=== PATIENT | female | born 1995 | race Two or more races ===

== ENCOUNTER 2017-05-14 19:09 | Inpatient (IN) | payer OTHER ==
[~2017-05-14] VITALS: Ht 170.2 cm; Wt 54.7 kg
[2017-05-14] MEDS ORDERED: ZOLO50TA PO (19:19)
[2017-05-14] MEDS ORDERED: PREV15CA18 PO (19:19)
[2017-05-14] MEDS ORDERED: CHARCOAL ACTIVATED LIQUID 25 GM/120 ML BTL PO ONE (19:45)
[2017-05-14] MEDS ORDERED: OMEP20CA3 PO (19:45)
[2017-05-14 20:08] LABS: BASO % 0.5 % (0.0-1.0); EOS # 0.4 K/mm3 (0.0-0.50); EOS % 5.6 % (0.0-3.0); LARGE UNSTAINED CELL # 0.2 K/mm3 (0.0-0.4); LARGE UNSTAINED CELL % 2.3 % (0.0-4.0); LYMPH # 1.9 K/mm3 (1.5-6.5); LYMPH % 23.5 % (24.0-44.0); MEAN CORPUSCULAR HEMOGLOBIN 31.4 pg (27.0-33.0); MEAN CORPUSCULAR HGB CONC 34.4 g/dl (32.0-36.5); MEAN CORPUSCULAR VOLUME 91.2 fl (80.0-96.0); MONO # 0.4 K/mm3 (0.0-0.8); MONO % 6.1 % (0.0-5.0); NEUTROPHILS # 4.5 K/mm3 (1.8-7.7); NEUTROPHILS % 61.9 % (36.0-66.0); PLATELET COUNT, AUTOMATED 260 k/mm3 (150-450); RED CELL DISTRIBUTION WIDTH 12.9 % (11.5-14.5); WHITE BLOOD COUNT 7.2 K/mm3 (4.0-10.0)
[2017-05-14 20:21] LABS: CONTROL LINE HCG INT CTR LINE PRESENT
[2017-05-14 20:36] LABS: ALBUMIN 3.8 GM/DL (3.2-5.2); ALBUMIN/GLOBULIN RATIO 1.09 (1.00-1.93); ALKALINE PHOSPHATASE 52 U/L (45-117); ALT/SGPT 25 U/L (12-78); ANION GAP 10 MEQ/L (8-16); AST/SGOT 19 U/L (15-37); BILIRUBIN,DIRECT < 0.1 MG/DL (0.0-0.2); BILIRUBIN,TOTAL 0.3 MG/DL (0.2-1.0); BLOOD UREA NITROGEN 18 MG/DL (7-18); CALCIUM LEVEL 9.2 MG/DL (8.5-10.1); CARBON DIOXIDE LEVEL 24 MEQ/L (21-32); CHLORIDE LEVEL 107 MEQ/L (98-107); CREATININE FOR GFR 0.74 MG/DL (0.55-1.02); GLOMERULAR FILTRATION RATE > 60.0 (>60); GLUCOSE, FASTING 78 MG/DL (70-105); POTASSIUM SERUM 4.1 MEQ/L (3.5-5.1); SODIUM LEVEL 141 MEQ/L (136-145); TOTAL PROTEIN 7.3 GM/DL (6.4-8.2)
[2017-05-14 21:23] LABS: METHADONE URINE NEGATIVE (NEGATIVE)
--- NOTE | 2017-05-14 21:40 | ECGEPIP ---
Stationary ECG Study [facility] - ED Test Date: 2017-05-14 Pat Name: OLESYA MACIAS Department: Room: - Gender: F [employer] Truck Driver: melissa : 1995 Requested By: AMADA CARUSO Order Number: [id number] Reading MD: Jolly Hernandez Measurements Intervals [place] Rate: 80 P: 19 NE: 139 QRS: 60 QRSD: 86 T: 34 QT: 365 QTc: 421 Interpretive Statements SINUS RHYTHM NO PRIOR FOR COMPARISON Electronically Signed On 05-14-2017 21:40:07 EDT by Jolly eHrnandez
[2017-05-14] MEDS ORDERED: CIPROFLOXACIN 500 MG TAB PO ONE (22:00)
[2017-05-14] MEDS ORDERED: MAALOX 30 ML SUSP *UDC PO PRN (22:45)
[2017-05-14] MEDS ORDERED: ACETAMINOPHEN TAB 650MG DOSE (2X325MG) PO PRN (22:45)
[2017-05-14] MEDS ORDERED: MOM 30ML SUSPENSION UDC PO PRN (22:45)
[2017-05-15 05:43] VITALS: BP 112/79
[2017-05-15 06:41] VITALS: BP 112/79
[2017-05-15] MEDS: NICOTINE 21MG/24HR 1 EA TRANSDERMAL TD SCH (08:24)
[2017-05-15] MEDS ORDERED: hydrOXYzine 25 MG TAB PO PRN (08:45)
--- NOTE | 2017-05-15 08:46 | MHHPEPDOC ---
[facility] History & Physical History and Physical DATE OF ADMISSION: May 14, 2017 at 22:43 LEGAL STATUS AT ADMISSION: 9.39 CHIEF COMPLAINT: "I just freaked out". HISTORY OF THE PRESENT ILLNESS: Patient is a 22-year-old female, who was brought to the emergency room by her boyfriends family after ingesting 15-20 tablets of sertraline 50 mg in a suicide attempt. Pt had argued with boyfriend. She was arrested in February for manufacturing Methamphetamine and spent 2 months in half-way. She entered drug rehab treatment in April at [facility] but it is unclear if she completed treatment. She claims to have remained sober but her toxicology results show otherwise. She is positive for stimulants. She is also positive for benzo's but this is likely due to the high level of sertraline she consumed. The drug is known to give false positives. PSYCHIATRIC REVIEW OF SYSTEMS: Affective: tired, anxious. Anxiety: high Trauma: denied Psychosis: not illicted. Personally: cooperative PAST PSYCHIATRIC HISTORY: Prior Psychiatric Disorder: none, first psychiatric admission, 1 rehab for substance abuse. Outpatient Treatment: receives medication from PCP Suicidal/Self injurious: denies actions, has had thoughts of suicide in past. Psychotropic Medication History: sertraline 50 mg ALLERGIES: Please see below. FAMILY PSYCHIATRIC HISTORY: brother - crack cocaine, denies family h/o suicide, anxiety, depression, PTSD, ADHD. bipolar disorder and schizophrenia. SOCIAL HISTORY: Early Relations/development: no concerns Sibling order: 1 older brother she is the oldest of 4 sisters. not close to her siblings. Paternal relationships: dad is now , mom has contact, drinks on occasion. Education: HS, not motivated "I didn't apply myself". Occupational: unemployed. Legal: criminal charges pending that are drug related. Martial: unmarried Economic: unemployed Supports: BF and his family Abuse/trauma: denies SUBSTANCE ABUSE HISTORY: Heroin, denies alcohol, denies cannabis, 1/4 gram of amphetamine, vague about how many times a day she uses.. PAST MEDICAL/SURGICAL HISTORY: The patient is noted to have bruises around the right eye and left ear which she states is self-inflicted. She also has a small erythematous area at the left antecubital which she states is from a bug bite. Denies any fevers, chills , weakness, fatigue, ALLISON, CP, SOB, cough, palpitations, abdominal pain, N/V/D or changes in bowel or bladder habits. PMHx: Depression Anxiety Panic attack Substance use. states completed rehabilitation 04/13. Denies relapse. GERD Chronic hepatitis C related to history of IV drug use. Appointment with ID 06/28 Back PSHX: Denies EKG RESULTS: Stationary ECG Study [facility] - ED Test Date: 2017-05-14 Pat Name: OLESYA MACIAS Department: Room: - Gender: F Tax Services Specialist: melissa : 1995 Requested By: AMAAD CARUSO Order Number: [id number] Reading MD: Jolly Hernandez Measurements Intervals [place] Rate: 80 P: 19 OR: 139 QRS: 60 QRSD: 86 T: 34 QT: 365 QTc: 421 Interpretive Statements SINUS RHYTHM NO PRIOR FOR COMPARISON Electronically Signed On 05-14-2017 21:40:07 EDT by Jolly Hernandez DD: Jolly Hernandez MD 05/14/171932 DT: JIMENA 05/14/[id number] DS: ANTONINA [id number]/14/[id number]/172139 VITAL SIGNS: Temperature 97, pulse 78, respiratory rate 16, blood pressure 112/ 79, pulse oximetry 99% on room air. Abnormal labs: TSH 0.295 (L) MENTAL STATUS EXAMINATION: General appearance: Patient is a 22-year old female, who is thin, acne on forehead, poor eye contact, yawning-admits to not sleeping last night, cooperative) Speech: spontaneous but muffled, garbled at times. Thought processes: goal directed. Thought content: appropriate. Abstract reasoning and computation: poor. Description of associations: good. Description of abnormal or psychotic thoughts: denies SI at this time. Denies auditory or visual disturbances. No delusions or obsessions voiced. Judgment: fair. Insight: poor. Orientation: well oriented in all spheres. Recent and remote memory: intact for most details. Attention span and concentration: good. Fund of knowledge: full Mood: "anxious" Affect: moderate. DIAGNOSES: Stimulant abuse, dependency Generalized Anxiety Disorder Substance Induced Mood Disorder Depression related to substance abuse ASSESSMENT: Pt has a chronic drug problem. she used to use heroin but quit that. She was transferred from [facility] to [facility]hab and relapsed immediately upon release. Her toxicology is positive for amphetamines. She has a daughter who is 1.5 years old. The child's paternal grand mother has residential custody of her. Olesya was arrested for amphetamine manufacturing and is supposed to have outpatient treatment at [facility] and attend groups 2 days a week. She is also supposed to have MH/BH follow up through [facility]. She is requesting a block and case maker. She says she has her own apartment in [place], but does not drive. She spends her days going to appointments. She has not completed her community service and she has not been looking for work as she has difficulty organizing her time with her appointments. [facility] She follows with PCP for script. She took it for 2 months before her arrest with some benefit. It was recently increased from 25 mg to 50 mg and she was not experiencing any mood improvement with the increase. She exhibits lots of shaking and complains of anxiety ( likely substance induced). She denies worry. She was over a month clean at her longest period of clean time which was some time ago. She says her anxiety feels like "something is about to go wrong". Pt states her recent relapse was being in the wrong place at the wrong time and being offered the amphetamine. Pt reports good concentration, no problems with appetite, denies hearing voices , seeing visions, she has been suicidal before but never took any actions to harm herself. This time she started to throw herself around the room and feels this is how she got the bruise under her eye. She states she had been thinking of overdosing for several days before it happened but she did not talk to anyone about how she felt. She could not control her impulse to overdose after the argument with her BF. She scores depression as 4/10 with 10 being the worse. Pt states she used to enjoy coloring but now she finds it hard to stay focused and do this. She reports changes in her energy level, up one day and down the next. Her mood will fluctuate also where she starts the day feeling very happy but is depressed at the end of the day. She first noticed this in rehab this last time. Pt is supposed to complete community service and obtain employment but she has not done so thus far. Pt denies owning weapons or having excess medication in her possession at home. Plan: we will change her zoloft to Effexor ER in hopes this will provide more relief of her anxiety and depression. We will reschedule her Follow up appts at [facility] and [facility]. We will inquire as to CM services for her. PROBLEM LIST: 1. risk for suicide 2. substance abuse 3. anxiety 4. ineffective coping INITIAL TREATMENT PLAN: 1. Patient was admitted on a 9.39 2. Complete history was obtained. 3. With patients permission, family will be contacted and database will be expanded. 4. Patients medication regimen will be reviewed and changed accordingly. 5. Patient will be provided with protected environment. 6. Patient will be treated with individual, group, and milieu therapies. 7. Patient will receive supportive psych-education. 8. Discharge planning will commence immediately. 9. Outpatient follow-up treatment will be strongly recommended. 10. The initial treatment plan will focus initially on: see problem list ESTIMATED LENGTH OF STAY: 5-7 DAYS. TIME SPENT COUNSELING AND COORDINATING INITIAL CARE: 50 minutes. Laboratory Data 24H Labs Laboratory Tests 2 05/14/17 20:01: White Blood Count 7.2, Red Blood Count 4.47, Hemoglobin 14.0, Hematocrit 40.7, Mean Corpuscular Volume 91.2, Mean Corpuscular Hemoglobin 31.4, Mean Corpuscular Hemoglobin Concent 34.4, Red Cell Distribution Width 12.9, Platelet Count 260, Neutrophils (%) (Auto) 61.9, Lymphocytes (%) (Auto) 23.5L, Monocytes (%) (Auto) 6.1H, Eosinophils (%) (Auto) 5.6H, Basophils (%) (Auto) 0.5, Neutrophils # (Auto) 4.5, Lymphocytes # (Auto) 1.9, Monocytes # (Auto) 0.4, Eosinophils # (Auto) 0.4, Basophils # (Auto) 0.0, Large Unclassified Cells % 2.3 , Large Unclassified Cells # 0.2, Urine Appearance HAZY, Urine Color YELLOW, Urine pH 5.0, Urine Specific [place] 1.027, Urine Protein 1+H, Urine Glucose (UA ) NEGATIVE, Urine Ketones NEGATIVE, Urine Urobilinogen 2.0H, Urine Bilirubin 1+H , Urine Leukocyte Esterase 1+H, Urine Blood NEGATIVE, Urine Nitrite NEGATIVE, Urine WBC (Auto) 14H, Urine RBC (Auto) 5H, Urine Hyaline Casts (Auto) 0, Urine Bacteria (Auto) NEGATIVE, Urine Squamous Epithelial Cells 1, Urine Mucus (Auto) SMALL, Urine Sperm (Auto) , Anion Gap 10, Glomerular Filtration Rate > 60.0, Calcium Level 9.2, Aspartate Amino Transf (AST/SGOT) 19, Alanine Aminotransferase (ALT/SGPT) 25, Alkaline Phosphatase 52, Total Bilirubin 0.3, Direct Bilirubin < 0.1, Total Creatine Kinase 84, Total Protein 7.3, Albumin 3.8 , Albumin/Globulin Ratio 1.09, Thyroid Stimulating Hormone (TSH) 0.295L, Human Chorionic Gonadotropin, Qual NEGATIVE, Salicylates Level 4.3L, Urine Amphetamines Screen POSITIVEH, Urine Benzodiazepines Screen POSITIVEH, Urine Opiates Screen NEGATIVE, Urine Methadone Screen NEGATIVE, Acetaminophen Level < 2.0L, Urine Barbiturates Screen NEGATIVE, Urine Phencyclidine Screen NEGATIVE, Urine Cocaine Metabolite Screen NEGATIVE, Urine Cannabinoids Screen NEGATIVE, Ethyl Alcohol Level < 0.003 05/14/17 20:12: Bedside Glucose (Misc Panel) 102 CBC/BMP Laboratory Tests 05/14/17 20:01 Red Blood Count 4.47, Mean Corpuscular Volume 91.2, Mean Corpuscular Hemoglobin 31.4, Mean Corpuscular Hemoglobin Concent 34.4, Red Cell Distribution Width 12.9 , Neutrophils (%) (Auto) 61.9, Lymphocytes (%) (Auto) 23.5 L, Monocytes (%) ( Auto) 6.1 H, Eosinophils (%) (Auto) 5.6 H, Basophils (%) (Auto) 0.5, Neutrophils # (Auto) 4.5, Lymphocytes # (Auto) 1.9, Monocytes # (Auto) 0.4, Eosinophils # (Auto) 0.4, Basophils # (Auto) 0.0 FSBS Laboratory Tests Test 05/14/17 20:12 Range/Units Bedside Glucose (Misc Panel) 102 70-105 MG/DL Medications Scheduled Omeprazole (Omeprazole) 20 Mg Cap, 20 MG PO DAILY, (Reported) Sertraline Hcl (Zoloft) 50 Mg Tab, 50 MG PO DAILY, (Reported) Allergies Coded Allergies: No Known Allergies (Unverified , 05/14/17) [place] May 15, 2017 08:46
--- NOTE | 2017-05-15 10:24 | HPEPDOC ---
Medical History and Physical Date of Admission May 14, 2017 at 22:43 History and Physical PCP: Dr Santiago ATTENDING: Dr. Deandre Contreras HPI: 22[facility]F [facility] unspecified depressive disorder, being medically examined today. No acute medical complaints today. Patient had reported taking 15 tablets of Zoloft 50 mg upon arrival to the emergency department. The patient received activated charcoal in the emergency department. Poison control was consulted. The patient was medically stabilized and subsequently [facility]. The patient is noted to have bruises around the right eye and left ear which she states is self-inflicted. She also has a small erythematous area at the left antecubital which she states is from a bug bite. Denies any fevers, chills, weakness, fatigue, ALLISON, CP, SOB, cough, palpitations, abdominal pain, N/V/D or changes in bowel or bladder habits. PMHx: Depression Anxiety Panic attack Substance use. states completed rehabilitation 04/13. Denies relapse. GERD Chronic hepatitis C related to history of IV drug use. Appointment with ID 06/28 Back PSHX: Denies SOCHX: Resides in: [facility] Marital Status: Single Kids: 1 Employment: Unemployed Tobacco use: One to 2 packs per day ETOH: Denies Illicit Drugs: States history of heroin and methamphetamine use. Recently spent time incarcerated in [facility] for manufacturing methamphetamine. States she completed rehabilitation 04/13/17. Denies relapse. IV Drug Use: Heroin, methamphetamine Tattoos done unprofessionally: Denies FAMHX: Mother: Alive, well Father: , [place] Siblings: Alive, well Children: Alive, well Unexpected deaths due to medical reasons: None. ROS: As noted in HPI, otherwise 11pt ROS of systems reviewed and remarkable only for LMP unknown PE: GEN: 22 yo F, appears stated age. Well-nourished, well developed. No acute distress. Alert and oriented x 3. HEENT: Normocephalic. Area of mild ecchymosis is noted around the right eye and left ear. Pupils are equal, round, and reactive to light. Extraocular movements are intact. No nystagmus appreciated. Sclera are nonicteric. Conjunctiva without injection. Nose midline. Nasal turbinates without bogginess. EACs both patent BL. TMs both visualized and sidhu with good cone of light, no bulging or erythema. No facial asymmetry. Moist mucous membranes. Dentition fair. Pharynx pink and moist, no cobblestoning. Neck supple, trachea midline. No lymphadenopathy or thyromegaly appreciated. CHEST: Regular rate and rhythm, +S1, +S2 LUNGS: Clear to auscultation bilaterally. No wheezes, rales, or rhonchi. Breathing appears symmetric and easy. Patient is speaking in full sentences. No accessory muscle use. ABD: Round, soft, non-tender, non-distended. +Bowel sounds throughout. No rebound or guarding. No costovertebral angle tenderness. EXT: Pulses 2+ bilaterally dorsalis pedis and radial. No lower extremity edema appreciated. SKIN: [place], dry, warm. Capillary refill <2sec. No rashes. NEURO: Alert and oriented x 3. Cranial nerves III-XII are intact. No focal deficits appreciated. EK05/14/17 SINUS RHYTHM NO PRIOR FOR COMPARISON A&P: 22[facility]F [facility] for unspecified [facility] disorder 1. Psych. Plan per Psychiatry. EKG on file. 2. Nicotine dependence. Patch available. 3. Chronic hepatitis C. Patient apparently has an appointment with ID 06/28. Will confirm. 4. Follow up with PCP on discharge. 5. Substance use. Per psychiatry. 6. GERD. Continue Prilosec 20 mg daily. 7. History of IVDU. Patient states recently screened for HIV which was negative. Declines rescreening. 8. UTI. UA indicates likely UTI. Urine culture pending. Patient received Cipro 500 mg by mouth 1 in ED. Will continue with Omnicef 300 mg by mouth twice a day 10 days. 9. Abnormal TSH. Recheck TFTs in a.m. 10. Staff member Kimberley PRICE present throughout exam. Vital Signs Vital Signs Date Time Temp Pulse Resp B/P (MAP) Pulse Ox O2 Delivery O2 Flow Rate FiO2 05/15/17 06:41 97.0 78 16 112/79 (90) 99 Room Air Laboratory Data Labs 24H Laboratory Tests 2 05/14/17 20:01: White Blood Count 7.2, Red Blood Count 4.47, Hemoglobin 14.0, Hematocrit 40.7, Mean Corpuscular Volume 91.2, Mean Corpuscular Hemoglobin 31.4, Mean Corpuscular Hemoglobin Concent 34.4, Red Cell Distribution Width 12.9, Platelet Count 260, Neutrophils (%) (Auto) 61.9, Lymphocytes (%) (Auto) 23.5L, Monocytes (%) (Auto) 6.1H, Eosinophils (%) (Auto) 5.6H, Basophils (%) (Auto) 0.5, Neutrophils # (Auto) 4.5, Lymphocytes # (Auto) 1.9, Monocytes # (Auto) 0.4, Eosinophils # (Auto) 0.4, Basophils # (Auto) 0.0, Large Unclassified Cells % 2.3 , Large Unclassified Cells # 0.2, Urine Appearance HAZY, Urine Color YELLOW, Urine pH 5.0, Urine Specific [place] 1.027, Urine Protein 1+H, Urine Glucose (UA ) NEGATIVE, Urine Ketones NEGATIVE, Urine Urobilinogen 2.0H, Urine Bilirubin 1+H , Urine Leukocyte Esterase 1+H, Urine Blood NEGATIVE, Urine Nitrite NEGATIVE, Urine WBC (Auto) 14H, Urine RBC (Auto) 5H, Urine Hyaline Casts (Auto) 0, Urine Bacteria (Auto) NEGATIVE, Urine Squamous Epithelial Cells 1, Urine Mucus (Auto) SMALL, Urine Sperm (Auto) , Anion Gap 10, Glomerular Filtration Rate > 60.0, Calcium Level 9.2, Aspartate Amino Transf (AST/SGOT) 19, Alanine Aminotransferase (ALT/SGPT) 25, Alkaline Phosphatase 52, Total Bilirubin 0.3, Direct Bilirubin < 0.1, Total Creatine Kinase 84, Total Protein 7.3, Albumin 3.8 , Albumin/Globulin Ratio 1.09, Thyroid Stimulating Hormone (TSH) 0.295L, Human Chorionic Gonadotropin, Qual NEGATIVE, Salicylates Level 4.3L, Urine Amphetamines Screen POSITIVEH, Urine Benzodiazepines Screen POSITIVEH, Urine Opiates Screen NEGATIVE, Urine Methadone Screen NEGATIVE, Acetaminophen Level < 2.0L, Urine Barbiturates Screen NEGATIVE, Urine Phencyclidine Screen NEGATIVE, Urine Cocaine Metabolite Screen NEGATIVE, Urine Cannabinoids Screen NEGATIVE, Ethyl Alcohol Level < 0.003 05/14/17 20:12: Bedside Glucose (Misc Panel) 102 CBC/BMP Laboratory Tests 05/14/17 20:01 Red Blood Count 4.47, Mean Corpuscular Volume 91.2, Mean Corpuscular Hemoglobin 31.4, Mean Corpuscular Hemoglobin Concent 34.4, Red Cell Distribution Width 12.9 , Neutrophils (%) (Auto) 61.9, Lymphocytes (%) (Auto) 23.5 L, Monocytes (%) ( Auto) 6.1 H, Eosinophils (%) (Auto) 5.6 H, Basophils (%) (Auto) 0.5, Neutrophils # (Auto) 4.5, Lymphocytes # (Auto) 1.9, Monocytes # (Auto) 0.4, Eosinophils # (Auto) 0.4, Basophils # (Auto) 0.0 Home Medications Scheduled Omeprazole (Omeprazole) 20 Mg Cap, 20 MG PO DAILY Sertraline Hcl (Zoloft) 50 Mg Tab, 50 MG PO DAILY Allergies Coded Allergies: No Known Allergies (Unverified , 05/14/17) Leida Sylvester May 15, 2017 10:24
[2017-05-15] MEDS: OMEPRAZOLE 20 MG CAP PO SCH (10:44)
[2017-05-15] MEDS: CEFDINIR 300 MG CAP (OMNICEF) PO SCH ×2 (10:44→20:52)
[2017-05-15 18:00] VITALS: BP 111/68
[2017-05-15] MEDS: traZODone 50 MG TAB PO PRN (20:52)
[2017-05-16 06:47] VITALS: BP 114/70
[2017-05-16 08:09] LABS: THYROXINE (T4) 11.3 UG/DL (4.5-12.0)
[2017-05-16] MEDS: OMEPRAZOLE 20 MG CAP PO SCH (09:13)
[2017-05-16] MEDS: CEFDINIR 300 MG CAP (OMNICEF) PO SCH ×2 (09:13→20:58)
[2017-05-16] MEDS: NICOTINE 21MG/24HR 1 EA TRANSDERMAL TD SCH (09:14)
[2017-05-16] MEDS ORDERED: hydrOXYzine 50 MG TAB PO PRN (12:45)
[2017-05-16 18:00] VITALS: BP 128/67
[2017-05-16] MEDS: traZODone 50 MG TAB PO PRN (20:58)
[2017-05-17 06:56] VITALS: BP 97/54
[2017-05-17] MEDS: CEFDINIR 300 MG CAP (OMNICEF) PO SCH ×2 (09:25→21:16)
[2017-05-17] MEDS: OMEPRAZOLE 20 MG CAP PO SCH (09:25)
[2017-05-17] MEDS: NICOTINE 21MG/24HR 1 EA TRANSDERMAL TD SCH (09:25)
[2017-05-17] MEDS ORDERED: hydrOXYzine 50 MG TAB PO PRN (13:30)
[2017-05-17 18:00] VITALS: BP 106/56
--- NOTE | 2017-05-17 20:24 | MHIPN ---
DATE: 05/16/2017 VITAL SIGNS: Temperature 97.7, pulse 71, respirations 16, blood pressure 114/70. HISTORY OF PRESENT ILLNESS: This is a 22-year-old white female with recent overdose of Zoloft. The patient has a history of generalized anxiety disorder, substance induced mood disorder, and stimulant use disorder. The patient reports having a lot of stress in her life from felony charges, recent release from care home, and referral to [facility]. The patient reports her appetite is good here on the unit. The patient reports sleeping well at night with her psychotropics. She does have some daytime anxiety. She requests that her Atarax dose be increased which appears reasonable. No recent panic attacks. The patient is to start Effexor on Thursday per her nurse practitioner. MENTAL STATUS EXAMINATION: The patient is alert, oriented, cooperative. She is quite thin. Affect appears sad. Mood is moderately depressed. She is not currently suicidal. Insight and judgment are fair to poor. No signs of psychosis. Not hearing voices. No paranoia or thought disorder noted. Memory functions appear intact. DIAGNOSES: Generalized anxiety disorder. Substance induced mood disorder. Stimulant use disorder. PLAN: Increase Atarax as requested from 25 mg up to 50 mg on an as needed basis. Encourage milieu therapy involvement.
[2017-05-17] MEDS: traZODone 50 MG TAB PO PRN (21:16)
[2017-05-18 07:16] VITALS: BP 92/57
[2017-05-18] MEDS: NICOTINE 21MG/24HR 1 EA TRANSDERMAL TD SCH (09:50)
[2017-05-18] MEDS: VENLAFAXINE **XR** 37.5 MG CAPSULE PO SCH (09:50)
[2017-05-18] MEDS: OMEPRAZOLE 20 MG CAP PO SCH (09:50)
[2017-05-18] MEDS: CEFDINIR 300 MG CAP (OMNICEF) PO SCH ×2 (09:50→20:55)
--- NOTE | 2017-05-18 10:10 | MHIPN ---
DATE: 05/17/2017 VITAL SIGNS: Temperature 98.3, pulse 72, respirations 18, blood pressure 97/54. CURRENT MEDICATIONS: - Effexor XR 37.5 mg by mouth daily every morning starting on May 18 - Atarax 50 mg every 6 hours as needed - trazodone 50 mg daily at bedtime as needed HISTORY OF PRESENT ILLNESS: Patient states her mood is a bit better. Her anxiety is still quite prominent, however. She is trying to ignore some of the psychosocial stressors which led her into the hospital. Patient still complains of anxiety symptoms. The Atarax 50 mg dose yesterday was minimally effective. She has no other complaints. MENTAL STATUS EXAMINATION: Patient alert, oriented and cooperative. Affect is a bit brighter today. Eye contact is improved. Insight and judgment are fair. Mood is mildly depressed. Moderately anxious. She is not psychotic. Not hearing voices. No paranoia or thought disorder. Grooming and hygiene are fair. DIAGNOSIS: Substance induced mood disorder. Stimulant mood disorder. Generalized anxiety disorder. PLAN: Increase Atarax to 75 mg by mouth every 6 hours as needed. Patient to start Effexor dosage tomorrow per her psychiatric provider.
--- NOTE | 2017-05-18 12:49 | MHIPNPDOC ---
[facility] Progress Note Progress Note DATE OF SERVICE: 05/18/17 HISTORY: day 4 of admission following Zoloft overdose. VITAL SIGNS: See below. NEW TEST RESULTS: na CURRENT MEDICATIONS: See below. MENTAL STATUS EXAMINATION: Patient is a 22-year old female, who is wearing street clothes, very thin, fair eye contact, yawning and cooperative. Speech: Is spontaneous Language skills are intact Thought processes including:goal directed. Thought content: appropriate Abstract reasoning, and computation: good. Description of associations: good. Description of abnormal or psychotic thoughts: no psychotic symptoms illicited, denies SI today or over the weekend. Judgment: limited Insight: limited. Orientation: oriented to person, place, time and situation. Recent and remote memory: intact. Attention span and concentration: adequate. Fund of knowledge: Full. Mood: anxious. Affect: yawning. DIAGNOSES: Stimulant abuse, dependency Generalized Anxiety Disorder Substance Induced Mood Disorder Depression related to substance abuse ASSESSMENT:pt in bed during group time. says her stomach hurts. States it hurts most mornings. It may be anxiety related. She denies much benefit from Atarax. Over the weekend dose increased from 25 mg to 75 mg. Encouraged pt to continue with this prn. She starts Effexor today and effexor should provide more relief to her anxiety than the Atarax is at this time. Encouraged pt to spend less time in room and become active in unit milieu as a means to lessen anxiety. CDP has been in touch with CM at [facility] who wants to participate in discharge planning. We should schedule a meeting soon. Pt eating well, sleeping adequately, received visitors over the weekend. Denies SI with plan or intent. MANAGEMENT PLAN: begin Effexor ER , delayed start following overdose due to fear of serotonin syndrome.continue prn atarax, encourage pt to be involved in unit activities, assess her skills at coping in a more effective manner. continue close observation. TIME SPENT: 25 minutes. Vital Signs Vital Signs Date Time Temp Pulse Resp B/P (MAP) Pulse Ox O2 Delivery O2 Flow Rate FiO2 05/18/17 07:16 96.5 84 16 92/57 (69) 05/17/17 12:30 Room Air 05/15/17 06:41 99 Current Medications Current Medications Acetaminophen (Tylenol Tab) 650 mg Q6HP PRN PO HEADACHE or DISCOMFORT; Start at 22:45; Stop 06/13/17 at 22:44 Al Hydrox/Mg Hydrox/Simethicone (Mylanta) 30 ml Q4HP PRN PO HEARTBURN/ INDIGESTION; Start 05/14/17 at 22:45; Stop 06/13/17 at 22:44 Cefdinir (Omnicef) 300 mg BID PO Last administered on 05/18/17 09:50; Start 05/15/17 at 09:00; Stop 05/24/17 at 23:59 Home Med (Med Rec Complete!) ASDIRECTED XX ; Start 05/14/17 at 20:00; Stop at 20:00; Status DC Hydroxyzine HCl (Atarax) 25 mg Q6HP PRN PO ANXIETY Last administered on 14:02; Start 05/15/17 at 08:45; Stop 05/16/17 at 12:35; Status DC Hydroxyzine HCl (Atarax) 50 mg Q6HP PRN PO ANXIETY Last administered on 15:53; Start 05/16/17 at 12:45; Stop 05/17/17 at 13:27; Status DC Hydroxyzine HCl (Atarax) 75 mg Q6HP PRN PO ANXIETY Last administered on 14:12; Start 05/17/17 at 13:30; Stop 06/16/17 at 13:29 Magnesium Hydroxide (Milk Of Magnesia) 30 ml DAILYPRN PRN PO CONSTIPATION; Start 05/14/17 at 22:45; Stop 06/13/17 at 22:44 Nicotine (Nicoderm Cq 21mg) 1 patch DAILY TD Last administered on 05/18/17 09: 50; Start 05/15/17 at 09:00; Stop 06/14/17 at 08:59 Omeprazole (PriLOSEC) 20 mg DAILY PO Last administered on 05/18/17 09:50; Start 05/15/17 at 09:00; Stop 06/14/17 at 08:59 Trazodone HCl (Desyrel) 50 mg QHSP PRN PO INSOMNIA Last administered on 21:16; Start 05/14/17 at 22:45; Stop 06/13/17 at 22:44 Venlafaxine HCl (Effexor Xr) 37.5 mg QAM PO Last administered on 05/18/17t 09:50; Start 05/18/17 at 09:00; Stop 06/17/17 at 08:59 Allergies Coded Allergies: No Known Allergies (Unverified , 05/14/17) Bailey Hill May 18, 2017 12:49
[2017-05-18 18:36] VITALS: BP 117/67
[2017-05-18] MEDS: traZODone 50 MG TAB PO PRN (20:55)
[2017-05-19 07:03] VITALS: BP 104/58
[2017-05-19] MEDS: NICOTINE 21MG/24HR 1 EA TRANSDERMAL TD SCH (08:22)
[2017-05-19] MEDS: CEFDINIR 300 MG CAP (OMNICEF) PO SCH ×2 (08:22→21:05)
[2017-05-19] MEDS: OMEPRAZOLE 20 MG CAP PO SCH (08:22)
[2017-05-19] MEDS: VENLAFAXINE **XR** 37.5 MG CAPSULE PO SCH (08:23)
--- NOTE | 2017-05-19 10:43 | MHIPNPDOC ---
[facility] Progress Note Progress Note DATE OF SERVICE: 05/19/17 HISTORY: day 5 of admission following overdose of Zoloft with intent to committ suicide. VITAL SIGNS: See below. NEW TEST RESULTS: na CURRENT MEDICATIONS: See below. MENTAL STATUS EXAMINATION: Patient is a 22-year old female, who is dressed in hospital attire, long straight hair, acne is clearing, eye contact is poor, bruise by eye is diminished, pleasant. Speech: Is clear. Language skills are good. Thought processes including: goal directed. Thought content: appropriate. Abstract reasoning, and computation: good. Description of associations: good. Description of abnormal or psychotic thoughts: no psychosis noted or reported. Pt denies thoughts of suicide for several days. Judgment: limited Insight: fair. Orientation: oriented to place, time and person, situation. Recent and remote memory: intact. Attention span and concentration: good. Fund of knowledge: Full. Mood: euthymic. Affect: congruent. DIAGNOSES: Stimulant abuse, dependency Generalized Anxiety Disorder Substance Induced Mood Disorder Depression related to substance abuse ASSESSMENT:Pt denies waking with stomach ache today. Reports both anxiety and depression are 3/10 with 10 being the worst. Substantial change then when admitted. Pt attended Team meeting and is in agreement with goals of treatment. She is attending programming and hearing about skills that can improve her coping mechanisms. She is concerned about pending court dates, one is in [facility], this week. She has had since December to complete 30 hours of community service and has not even begun to do this. We have had contact with her PO from [facility] and hope to hold a discharge planning meeting [facility] so pt can attend to her obligations and be discharged. Pt is tolerating Effexor ER well. Denies rash or other side effects. Reports good sleep. Eating at meal times. No behavior challenges on the unit. MANAGEMENT PLAN: continue Effexor ER ,close observation, groups, follow unit routines and rules.. TIME SPENT: 25 minutes. Vital Signs Vital Signs Date Time Temp Pulse Resp B/P (MAP) Pulse Ox O2 Delivery O2 Flow Rate FiO2 05/19/17 07:03 98.0 77 16 104/58 (73) Room Air 05/15/17 06:41 99 Current Medications Current Medications Acetaminophen (Tylenol Tab) 650 mg Q6HP PRN PO HEADACHE or DISCOMFORT; Start at 22:45; Stop 06/13/17 at 22:44 Al Hydrox/Mg Hydrox/Simethicone (Mylanta) 30 ml Q4HP PRN PO HEARTBURN/ INDIGESTION; Start 05/14/17 at 22:45; Stop 06/13/17 at 22:44 Cefdinir (Omnicef) 300 mg BID PO Last administered on 05/19/17 08:22; Start 05/15/17 at 09:00; Stop 05/24/17 at 23:59 Home Med (Med Rec Complete!) ASDIRECTED XX ; Start 05/14/17 at 20:00; Stop at 20:00; Status DC Hydroxyzine HCl (Atarax) 25 mg Q6HP PRN PO ANXIETY Last administered on 14:02; Start 05/15/17 at 08:45; Stop 05/16/17 at 12:35; Status DC Hydroxyzine HCl (Atarax) 50 mg Q6HP PRN PO ANXIETY Last administered on 15:53; Start 05/16/17 at 12:45; Stop 05/17/17 at 13:27; Status DC Hydroxyzine HCl (Atarax) 75 mg Q6HP PRN PO ANXIETY Last administered on 14:12; Start 05/17/17 at 13:30; Stop 06/16/17 at 13:29 Magnesium Hydroxide (Milk Of Magnesia) 30 ml DAILYPRN PRN PO CONSTIPATION; Start 05/14/17 at 22:45; Stop 06/13/17 at 22:44 Nicotine (Nicoderm Cq 21mg) 1 patch DAILY TD Last administered on 05/19/17 08: 22; Start 05/15/17 at 09:00; Stop 06/14/17 at 08:59 Omeprazole (PriLOSEC) 20 mg DAILY PO Last administered on 05/19/17 08:22; Start 05/15/17 at 09:00; Stop 06/14/17 at 08:59 Trazodone HCl (Desyrel) 50 mg QHSP PRN PO INSOMNIA Last administered on 20:55; Start 05/14/17 at 22:45; Stop 06/13/17 at 22:44 Venlafaxine HCl (Effexor Xr) 37.5 mg QAM PO Last administered on 05/19/17t 08:23; Start 05/18/17 at 09:00; Stop 06/17/17 at 08:59 Allergies Coded Allergies: No Known Allergies (Unverified , 05/14/17) Bailey Hill May 19, 2017 10:43
[2017-05-19 18:15] VITALS: BP 112/69
[2017-05-19] MEDS: traZODone 50 MG TAB PO PRN (21:05)
[2017-05-20 07:12] VITALS: BP 109/69
[2017-05-20] MEDS: OMEPRAZOLE 20 MG CAP PO SCH (08:59)
[2017-05-20] MEDS: NICOTINE 21MG/24HR 1 EA TRANSDERMAL TD SCH (08:59)
[2017-05-20] MEDS: VENLAFAXINE **XR** 37.5 MG CAPSULE PO SCH (08:59)
[2017-05-20] MEDS: CEFDINIR 300 MG CAP (OMNICEF) PO SCH (08:59)
[2017-05-20] MEDS ORDERED: VENL37.52 PO (13:29)
[2017-05-20] MEDS ORDERED: TRAZO50TA PO (13:29)
--- NOTE | 2017-05-20 15:39 | MHDSPDOC ---
[facility] Discharge Summary Discharge Summary DATE OF ADMISSION: May 14, 2017 at 22:43 DATE OF DISCHARGE: May 20, 2017 DISCHARGE DIAGNOSES: Stimulant abuse, dependency Generalized Anxiety Disorder Substance Induced Mood Disorder Depression related to substance abuse Tobacco dependence. REASON FOR ADMISSION: SI-pt attempted suicide by overdosing on sertraline 25 mg 15-20 tablets. CONSULTANTS INVOLVED: franko PMHx: Depression Anxiety Panic attack Substance use. states completed rehabilitation 04/13. Denies relapse. GERD Chronic hepatitis C related to history of IV drug use. Appointment with ID 06/28 Back PSHX: Denies Stationary ECG Study [facility] - ED Test Date: 2017-05-14 Pat Name: OLESYA MACIAS Department: Room: - Gender: F Video Tape Editor: melissa : 1995 Requested By: AMADA CARUSO Order Number: [id number] Reading MD: Jolly Hernandez Measurements Intervals [place] Rate: 80 P: 19 NM: 139 QRS: 60 QRSD: 86 T: 34 QT: 365 QTc: 421 Interpretive Statements SINUS RHYTHM NO PRIOR FOR COMPARISON Electronically Signed On 05-14-2017 21:40:07 EDT by Jolly Hernandez DD: Jolly Hernandez MD 05/14/171932 DT: JIMENA 05/14/[id number] DS: ANTONINA 05/14/[id number] TREATMENT AND PROGRESS ON THE UNIT : Pt reports a great deal of anxiety. She has been struggling with methamphetamine addiction. She has legal consequences pending and was recently treated at an inpatient substance abuse program in [facility]. She relapsed shortly after discharge, went to correction and after release was living with her BF. They argued and she states it was an impulsive act to overdose on her medication. Her outpatient treatment providers are [facility] and and [facility]. HOSPITAL COURSE: During her time with us Olesya was a model patient. She readily attended groups and did not complain about it. She occupied herself with coloring and puzzles during her free time. She kept mostly to herself. She was not a behavior challenge to any of the staff. She ate regularly and attended to her personal needs without direction. She followed unit rules and routines without difficulty. We started Olesya on Effexor ER a well known SNRI for the treatment of anxiety and depression. It seemed better suited for her than sertraline. She responded positively to the medication change. No SI wiht the onset of medication. No glenn or hypomania. pt was able to sleep well with trazodone at 50 mg prn when needed. She occasionally took vistaril but does not find it very effective. Once on Effexor she did not feel the need for prn dosing. Pt stated that sometimes she felt like the sertraline "made me suicidal". Given the blackbox warnings on SSRI's and her age this could be an explanation for her behavior. DISCHARGE ASSESSMENT: Olesya states she "really wants it" and wants to take care of her legal issues and one day regain full custody of her daughter. She knows she needs to complete her community service and get a job. She plans to resume outpatient treatment at [facility]. Prior to discharge today she had a conversation via phone with her Probation Office and our CDP. She is aware she has court tomorrow morning and a letter was provided for her to show that she was a pt here and unable to do community service for the period of her admission. Pts Effexor was raised to 75 mg at the time of discharge. Medical follow up: Nicotine dependence. Patch available. 3. Chronic hepatitis C. Patient apparently has an appointment with ID 06/28. Will confirm. 4. Follow up with PCP on discharge. 5. Substance use. Per psychiatry. 6. GERD. Continue Prilosec 20 mg daily. 7. History of IVDU. Patient states recently screened for HIV which was negative. Declines rescreening. 8. UTI. UA indicates likely UTI. Urine culture pending. Patient received Cipro 500 mg by mouth 1 in ED. Will continue with Omnicef 300 mg by mouth twice a day 10 days. 9. Abnormal TSH. Recheck TFTs in a.m. MENTAL STATUS EXAMINATION ON DISCHARGE: Patient is a 22-year old female, who is thin with long hair, fair eye contact, positive attitude and pleasant demeanor. Speech is logical and spontaneous. Language skills are good. Thought processes including: goal directed. Thought content: appropriate. Abstract reasoning, and computation: good. Description of associations: good. Description of abnormal or psychotic thoughts: no psychosis observed this visit. Pt stopped having suicidal thoughts upon admission and fully cooperated with treatment planning. Judgment: fair. Insight: good. Orientation to person, place, time and surroundings. Recent and remote memory: intact. Attention span and concentration: good. Fund of knowledge: Full. Mood: euthymic Affect: broad MEDICATIONS ON DISCHARGE: - venlafaxine xr for anxiety and depression. - trazodone for sleep - pt reports she has atarax at home for prn anxiety if necessary so no script given PLAN/FOLLOWUP ARRANGEMENTS: Probation as directed, Court as ordered, [facility] within 7 days. Thyroid profile is low, refer to PCP for evaluation. The amount of time spent in the coordination of care for this patient was approximately 45 minutes. Vital Signs/I&Os Vital Signs Date Time Temp Pulse Resp B/P (MAP) Pulse Ox O2 Delivery O2 Flow Rate FiO2 05/20/17 07:12 97.9 65 16 109/69 (82) Room Air 05/15/17 06:41 99 Laboratory Data Microbiology Microbiology 05/15/17 Urine Culture - Final, Complete Medications Scheduled Omeprazole (Omeprazole) 20 Mg Cap, 20 MG PO DAILY, (Reported) Venlafaxine HCl (Venlafaxine HCl ER) 37.5 Mg Cap, 37.5 MG PO QAM for ANXIETY for 7 Days, #14 take 2 tabs po q a.m. Scheduled PRN Trazodone HCl (Trazodone HCl) 50 Mg Tab, 50 MG PO QHSP PRN for INSOMNIA for 7 Days, #7 Allergies Coded Allergies: No Known Allergies (Unverified , 05/14/17) Bailey Hill May 20, 2017 15:39
== END 2017-05-20 16:07 | disposition home or self-care (01) | DRG 756 ==
LOC: M ED 19:09 → M ED INP 22:43 → M PSY 05-15 04:15
PROVIDERS: ADMIT Psychiatry & Neurology Psychiatry; ATTEND Psychiatry & Neurology Psychiatry
DX: F41.1 Generalized anxiety disorder (principal); N39.0 Urinary tract infection, site not specified; F15.24 Other stimulant dependence with stimulant-induced mood disorder; T43.222A Poisoning by selective serotonin reuptake inhibitors, intentional self-harm, initial encounter; Y92.009 Unspecified place in unspecified non-institutional (private) residence as the place of occurrence of the external cause; Z65.2 Problems related to release from prison; B18.2 Chronic viral hepatitis C; K21.9 Gastro-esophageal reflux disease without esophagitis; F17.210 Nicotine dependence, cigarettes, uncomplicated; Z79.899 Other long term (current) drug therapy

== ENCOUNTER → 2017-06-23 | Outpatient (REF) | payer OTHER ==
[~2017-06-23] MED LIST: OMEP20CA3 PO; PREV15CA18 PO; TRAZO50TA PO; VENL37.52 PO; ZOLO50TA PO
[2017-06-23 19:51] LABS: ALBUMIN 3.6 GM/DL (3.2-5.2); ALBUMIN/GLOBULIN RATIO 1.09 (1.00-1.93); ALKALINE PHOSPHATASE 70 U/L (45-117); ALT/SGPT 29 U/L (12-78); AST/SGOT 17 U/L (15-37); BILIRUBIN,DIRECT < 0.1 MG/DL (0.0-0.2); BILIRUBIN,TOTAL 0.2 MG/DL (0.2-1.0); TOTAL PROTEIN 6.9 GM/DL (6.4-8.2)
[2017-06-24 11:51] LABS: HEPATITIS B SURFACE ANTIBODY POSITIVE (POSITIVE)
[2017-06-27 00:07] LABS: HEPATITIS C QUANTITATION 80 IU/mL (.)
== END ==
LOC: M SFHCPLAZ 13:36
PROVIDERS: ATTEND Internal Medicine Infectious Disease
DX: R94.6 Abnormal results of thyroid function studies (principal); B18.2 Chronic viral hepatitis C

== ENCOUNTER → 2018-08-04 | Outpatient (CLI) | payer MEDICAID, OTHER ==
[2018-08-04 17:54] LABS: BASO % 0.5 % (0.0-1.0); EOS # 0.3 10^3/uL (0.0-0.50); EOS % 5.3 % (0.0-3.0); HEMATOCRIT 38.6 % (36.0-47.0); HEMOGLOBIN 12.9 g/dl (12.0-15.5); IMMATURE GRANULOCYTE % 0.2 % (0-3.0); LYMPH # 2.3 10^3/uL (1.5-6.5); LYMPH % 39.2 % (24.0-44.0); MEAN CORPUSCULAR HEMOGLOBIN 30.7 pg (27.0-33.0); MEAN CORPUSCULAR HGB CONC 33.4 g/dl (32.0-36.5); MEAN CORPUSCULAR VOLUME 91.9 fl (80.0-96.0); MONO # 0.6 10^3/uL (0.0-0.8); MONO % 9.8 % (0.0-5.0); NEUTROPHILS # 2.6 10^3/uL (1.8-7.7); PLATELET COUNT, AUTOMATED 242 10^3/uL (150-450); RED CELL DISTRIBUTION WIDTH 13.3 % (11.5-14.5); WHITE BLOOD COUNT 5.8 10^3/uL (4.0-10.0)
[2018-08-04 18:05] LABS: APPEARANCE, URINE CLEAR (CLEAR); BACTERIA, URINE AUTO NEGATIVE (NEGATIVE); BILIRUBIN, URINE AUTO NEGATIVE (NEGATIVE); BLOOD, URINE BLOOD NEGATIVE (NEGATIVE); COLOR, URINE YELLOW (YELLOW); GLUCOSE, URINE (UA) AUTO NEGATIVE (NEGATIVE); KETONE, URINE AUTO NEGATIVE (NEGATIVE); LEUKOCYTE ESTERASE, URINE AUTO NEGATIVE (NEGATIVE); MUCUS, URINE SMALL (NEGATIVE); NITRITE, URINE AUTO NEGATIVE (NEGATIVE); PROTEIN, URINE AUTO NEGATIVE (NEGATIVE); RBC, URINE AUTO 3 /HPF (0-3); SPECIFIC GRAVITY URINE AUTO 1.017 (1.002-1.035); SQUAMOUS EPITHELIAL CELL UR AU 0 /HPF (0-6); UROBILINOGEN, URINE AUTO 0.2 mg/dL (0.0-2.0); WBC, URINE AUTO 0 /HPF (0-3)
[2018-08-04 18:14] LABS: ALBUMIN 4.3 GM/DL (3.2-5.2); ALBUMIN/GLOBULIN RATIO 1.34 (1.00-1.93); ALKALINE PHOSPHATASE 67 U/L (45-117); ALT/SGPT 17 U/L (12-78); ANION GAP 6 MEQ/L (8-16); AST/SGOT 11 U/L (7-37); BILIRUBIN,TOTAL 0.2 MG/DL (0.2-1.0); BLOOD UREA NITROGEN 17 MG/DL (7-18); CALCIUM LEVEL 9.6 MG/DL (8.5-10.1); CARBON DIOXIDE LEVEL 29 MEQ/L (21-32); CHLORIDE LEVEL 105 MEQ/L (98-107); CREATININE FOR GFR 0.66 MG/DL (0.55-1.30); GLOMERULAR FILTRATION RATE > 60.0 (>60); GLUCOSE, FASTING 83 MG/DL (70-100); POTASSIUM SERUM 4.2 MEQ/L (3.5-5.1); SODIUM LEVEL 140 MEQ/L (136-145); TOTAL PROTEIN 7.5 GM/DL (6.4-8.2)
[2018-08-06 11:20] LABS: HEPATITIS B SURFACE ANTIBODY POSITIVE (POSITIVE)
[2018-08-06 11:31] LABS: HEPATITIS B SURFACE ANTIGEN NEGATIVE (NEGATIVE)
== END ==
LOC: M LAB 17:17
DX: Z02.0 Encounter for examination for admission to educational institution (principal)
CPT/HCPCS: 80053

== ENCOUNTER → 2018-09-20 | Outpatient (CLI) | payer MEDICAID ==
[2018-09-20 14:13] LABS: TOTAL 25(OH) VITAMIN D 20.8 NG/ML (30.0-100.0)
== END ==
LOC: M LAB 13:16
DX: R53.83 Other fatigue (principal); E55.9 Vitamin D deficiency, unspecified
CPT/HCPCS: 82306

== ENCOUNTER → 2018-10-03 | Outpatient (REF) | payer MEDICAID | LOC: M LAB REF 09:18 | PROVIDERS: ATTEND Physician Assistant Medical | DX: J02.9 Acute pharyngitis, unspecified (principal) ==

== ENCOUNTER → 2018-10-22 | Outpatient (REF) | payer MEDICAID ==
[2018-10-22 20:08] LABS: INFLUENZA A AMPLIFICATION NEGATIVE (NEGATIVE); INFLUENZA B AMPLIFICATION NEGATIVE (NEGATIVE)
== END ==
LOC: M LAB REF 19:11
PROVIDERS: ATTEND Physician Assistant Medical
DX: Z11.59 Encounter for screening for other viral diseases (principal)

== ENCOUNTER → 2018-11-09 | Outpatient (CLI) | payer MEDICAID | LOC: M LAB 10:24 | PROVIDERS: ATTEND Nurse Practitioner Adult Health | DX: B18.2 Chronic viral hepatitis C (principal) ==

== ENCOUNTER 2018-12-15 14:54 | Inpatient (IN) | payer MEDICAID, OTHER ==
[~2018-12-15] VITALS: Ht 170.2 cm; Wt 58.3 kg
[2018-12-15] MEDS ORDERED: NICOTINE POLACRILEX 2 MG GUM PO ONE (15:15)
[2018-12-15] MEDS ORDERED: IBUPROFEN 600 MG TAB PO ONE (15:15)
[2018-12-15] MEDS ORDERED: GABA600T4 PO (15:21)
[2018-12-15] MEDS ORDERED: LAMO100T PO (15:21)
[2018-12-15 15:49] LABS: AMPHETAMINES LEVEL URINE NEGATIVE (NEGATIVE); BARBITURATES URINE NEGATIVE (NEGATIVE); BENZODIAZEPINES URINE NEGATIVE (NEGATIVE); CANNABINOIDS URINE NEGATIVE (NEGATIVE); COCAINE METABOLITE URINE NEGATIVE (NEGATIVE); METHADONE URINE NEGATIVE (NEGATIVE); OPIATES URINE NEGATIVE (NEGATIVE); PHENCYCLIDINE URINE NEGATIVE (NEGATIVE)
[2018-12-15 16:37] LABS: HEMATOCRIT 37.7 % (36.0-47.0); HEMOGLOBIN 12.6 g/dl (12.0-15.5); MEAN CORPUSCULAR HEMOGLOBIN 29.2 pg (27.0-33.0); MEAN CORPUSCULAR HGB CONC 33.4 g/dl (32.0-36.5); MEAN CORPUSCULAR VOLUME 87.5 fl (80.0-96.0); PLATELET COUNT, AUTOMATED 238 10^3/uL (150-450); RED BLOOD COUNT 4.31 10^6/uL (4.00-5.40); WHITE BLOOD COUNT 5.5 10^3/uL (4.0-10.0)
[2018-12-15 16:58] LABS: HCG, SERUM QUALITATIVE NEGATIVE (NEGATIVE)
[2018-12-15 17:09] LABS: ALT/SGPT 20 U/L (12-78); BLOOD UREA NITROGEN 13 MG/DL (7-18); CALCIUM LEVEL 8.7 MG/DL (8.5-10.1); CARBON DIOXIDE LEVEL 28 MEQ/L (21-32); CHLORIDE LEVEL 105 MEQ/L (98-107); CREATININE FOR GFR 0.72 MG/DL (0.55-1.30); GLOMERULAR FILTRATION RATE > 60.0 (>60); GLUCOSE, FASTING 74 MG/DL (70-100); POTASSIUM SERUM 4.1 MEQ/L (3.5-5.1); SODIUM LEVEL 139 MEQ/L (136-145)
[2018-12-15 17:10] LABS: ACETAMINOPHEN LEVEL < 2.0 UG/ML (10.0-30.0); ALBUMIN 4.2 GM/DL (3.2-5.2); BILIRUBIN,DIRECT < 0.1 MG/DL (0.0-0.2); BILIRUBIN,TOTAL 0.2 MG/DL (0.2-1.0); ETHYL ALCOHOL (ETHANOL) < 0.003 % (0.000-0.010); SALICYLATE LEVEL < 1.7 MG/DL (5.0-30.0); TOTAL PROTEIN 7.7 GM/DL (6.4-8.2)
[2018-12-15] MEDS ORDERED: TRAZ-163 PO (18:00)
[2018-12-15] MEDS ORDERED: VENL75CA2 PO (18:00)
[2018-12-15] MEDS ORDERED: NICO4GUM31 PO (18:00)
[2018-12-15] MEDS ORDERED: VENL150C43 PO (18:00)
[2018-12-15] MEDS ORDERED: ZYRT10CA5 PO (18:00)
[2018-12-15] MEDS ORDERED: lamoTRIgine 100MG TAB PO ONE (19:45)
[2018-12-15] MEDS ORDERED: GABAPENTIN 300 MG CAP PO ONE (19:45)
[2018-12-15] MEDS ORDERED: traZODone 100 MG TAB PO ONE (19:45)
[2018-12-16] MEDS: CETIRIZINE (ZyrTEC) 10 MG TAB PO SCH (08:54)
[2018-12-16] MEDS: lamoTRIgine 100MG TAB PO SCH ×2 (08:54→21:03)
[2018-12-16] MEDS: GABAPENTIN 300 MG CAP PO SCH ×3 (08:54→21:03)
[2018-12-16] MEDS: VENLAFAXINE **XR** 75MG CAPSULE PO SCH (08:54)
[2018-12-16] MEDS ORDERED: NICOTINE POLACRILEX 2 MG GUM PO ONE (09:30)
[2018-12-16] MEDS ORDERED: METAL LOCK LOOP XX ONE (12:46)
[2018-12-16] MEDS ORDERED: MAALOX 30 ML SUSP *UDC PO PRN (13:00)
[2018-12-16] MEDS ORDERED: MOM 30ML SUSPENSION UDC PO PRN (13:00)
[2018-12-16] MEDS ORDERED: traZODone 50 MG TAB PO PRN ×2 (13:00→18:15)
[2018-12-16 13:40] VITALS: BP 110/73
[2018-12-16] MEDS: NICOTINE POLACRILEX 2 MG GUM PO PRN ×2 (15:27→18:36)
[2018-12-16 18:00] VITALS: BP 125/76
[2018-12-17 06:00] VITALS: BP 120/67
[2018-12-17] MEDS: NICOTINE POLACRILEX 2 MG GUM PO PRN ×4 (07:10→17:08)
[2018-12-17] MEDS: VENLAFAXINE **XR** 75MG CAPSULE PO SCH (09:05)
[2018-12-17] MEDS: GABAPENTIN 300 MG CAP PO SCH ×3 (09:05→21:05)
[2018-12-17] MEDS: CETIRIZINE (ZyrTEC) 10 MG TAB PO SCH (09:05)
[2018-12-17] MEDS: lamoTRIgine 100MG TAB PO SCH (09:05)
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
[2018-12-17] MEDS ORDERED: QUEtiapine FUMARATE 25 MG TAB PO PRN (12:00)
--- NOTE | 2018-12-17 12:01 | HPEPDOC ---
[facility] Medical History & Physical Date of Admission Dec 16, 2018 History and Physical PCP: Roel CARMONA ATTENDING: Dr. Destini Bruce HPI: 23yoF admitted to [facility] for unspecified depressive disorder, being medically examined today. No acute medical complaints today. The pt states she takes Lamictal for mood and Gabapentin for anxiety. Denies any fevers, chills, weakness, fatigue, ALLISON, CP, SOB, cough, palpitations, abdominal pain, N/V/D or changes in bowel or bladder habits. PMHx: Depression Anxiety Panic attack H/O SI/SA, OD 05/28. H/O Substance use. States has not used since 06/29. GERD Chronic hepatitis C related to history of IV drug use. Pt states S/P treatment with [facility] 05/29. Allergic rhinitis PSHX: Denies SOCHX: Resides in: [facility] Marital Status: Single Kids: 1 Employment: Unemployed Tobacco use: States quit 6 mo ago ETOH: Denies Illicit Drugs: [facility] history of heroin and methamphetamine use. States none since 05/29. IV Drug Use: Heroin, methamphetamine Tattoos done unprofessionally: Denies FAMHX: Mother: Alive, well Father: , [place] Siblings: Alive, well Children: Alive, well Unexpected deaths due to medical reasons: None. ROS: As noted in HPI, otherwise 11pt ROS of systems reviewed and remarkable only for LMP unknown PE: GEN: 23 yo F, appears stated age. Well-nourished, well developed. No acute distress. Alert and oriented x 3. HEENT: Normocephalic. Area of mild ecchymosis is noted around the right eye and left ear. Pupils are equal, round, and reactive to light. Extraocular movements are intact. No nystagmus appreciated. Sclera are nonicteric. Conjunctiva without injection. Nose midline. Nasal turbinates without bogginess. EACs both patent BL. TMs both visualized and sidhu with good cone of light, no bulging or erythema. No facial asymmetry. Moist mucous membranes. Dentition fair. Pharynx pink and moist, no cobblestoning. Neck supple, trachea midline. No lymphadenopathy or thyromegaly appreciated. CHEST: Regular rate and rhythm, +S1, +S2 LUNGS: Clear to auscultation bilaterally. No wheezes, rales, or rhonchi. Breathing appears symmetric and easy. Patient is speaking in full sentences. No accessory muscle use. ABD: Round, soft, non-tender, non-distended. +Bowel sounds throughout. No rebound or guarding. No costovertebral angle tenderness. EXT: Pulses 2+ bilaterally dorsalis pedis and radial. No lower extremity edema appreciated. SKIN: [place], dry, warm. Capillary refill <2sec. No rashes. NEURO: Alert and oriented x 3. Cranial nerves III-XII are intact. No focal deficits appreciated. EK05/14/17 SINUS RHYTHM NO PRIOR FOR COMPARISON A&P: 22yoF admitted to [facility] for unspecified depressive disorder 1. Psych. Plan per Psychiatry. EKG pending. 2. Allergic rhinitis. Zyrtec 10 mg po daily. 3. Follow up with PCP on discharge. 4. History of IVDU. Declines rescreening. 5. Staff member Jonah PRICE present throughout exam Vital Signs Vital Signs Date Time Temp Pulse Resp B/P (MAP) Pulse Ox O2 Delivery O2 Flow Rate FiO2 12/17/18 06:00 98.2 99 14 120/67 (84) 12/16/18 13:00 98 Room Air Laboratory Data Labs 24H Item Value Date Time White Blood Count 5.5 10^3/uL 12/15/18 1612 Red Blood Count 4.31 10^6/uL 12/15/18 1612 Hemoglobin 12.6 g/dl 12/15/18 1612 Hematocrit 37.7 % 12/15/18 1612 Mean Corpuscular Volume 87.5 fl 12/15/18 1612 Mean Corpuscular Hemoglobin 29.2 pg 12/15/18 1612 Mean Corpuscular Hemoglobin Concent 33.4 g/dl 12/15/18 1612 Red Cell Distribution Width 12.4 % 12/15/18 161 Platelet Count 238 10^3/uL 12/15/18 1612 Sodium Level 139 MEQ/L 12/15/18 1612 Potassium Level 4.1 MEQ/L 12/15/18 1612 Chloride Level 105 MEQ/L 12/15/18 1612 Carbon Dioxide Level 28 MEQ/L 12/15/18 1612 Anion Gap 6 MEQ/L L 12/15/18 1612 Blood Urea Nitrogen 13 MG/DL 12/15/18 1612 Creatinine 0.72 MG/DL 12/15/18 1612 Glomerular Filtration Rate > 60.0 12/15/18 1612 Fasting Glucose 74 MG/DL 12/15/18 1612 Calcium Level 8.7 MG/DL 12/15/18 1612 Total Bilirubin 0.2 MG/DL 12/15/18 1612 Direct Bilirubin < 0.1 MG/DL 12/15/18 1612 Aspartate Amino Transf (AST/SGOT) 15 U/L 12/15/18 1612 Alanine Aminotransferase (ALT/SGPT) 20 U/L 12/15/18 1612 Alkaline Phosphatase 59 U/L 12/15/18 1612 Total Protein 7.7 GM/DL 12/15/18 1612 Albumin 4.2 GM/DL 12/15/18 1612 Albumin/Globulin Ratio 1.20 12/15/18 1612 Thyroid Stimulating Hormone (TSH) 1.300 uIU/ML 12/15/18 1612 Human Chorionic Gonadotropin, Qual NEGATIVE 12/15/18 1612 Salicylates Level < 1.7 MG/DL L 12/15/18 1612 Urine Opiates Screen NEGATIVE 12/15/18 1503 Urine Methadone Screen NEGATIVE 12/15/18 1503 Acetaminophen Level < 2.0 UG/ML L 12/15/18 1612 Urine Barbiturates Screen NEGATIVE 12/15/18 1503 Urine Phencyclidine Screen NEGATIVE 12/15/18 1503 Urine Amphetamines Screen NEGATIVE 12/15/18 1503 Urine Benzodiazepines Screen NEGATIVE 12/15/18 1503 Urine Cocaine Metabolite Screen NEGATIVE 12/15/18 1503 Urine Cannabinoids Screen NEGATIVE 12/15/18 1503 Ethyl Alcohol Level < 0.003 % 12/15/18 1612 Home Medications Scheduled Cetirizine HCl (Zyrtec Allergy) 10 Mg Tab, 10 MG PO DAILY Gabapentin (Gabapentin) 600 Mg Tab, 600 MG PO TID Lamotrigine (Lamotrigine) 100 Mg Tab, 100 MG PO BID Trazodone HCl (Trazodone HCl) 100 Mg Tab, 100 MG PO QHS Venlafaxine HCl (Venlafaxine HCl ER) 75 Mg Cap, 75 MG PO DAILY 225MG TOTAL DAILY Venlafaxine Hydrochloride (Venlafaxine HCl ER) 150 Mg Cap, 150 MG PO DAILY 225MG TOTAL DAILY Scheduled PRN Nicotine Polacrilex (Nicotine) 4 Mg Gum, 4 MG PO Q1H PRN for NICOTINE WITHDRAWAL Allergies Coded Allergies: No Known Allergies (Unverified , 05/14/17) Leida Sylvester Dec 17, 2018 12:01
[2018-12-17 18:06] VITALS: BP 133/87
[2018-12-18 06:20] VITALS: BP 113/68
[2018-12-18] MEDS: NICOTINE POLACRILEX 2 MG GUM PO PRN ×4 (08:25→18:32)
[2018-12-18] MEDS: CETIRIZINE (ZyrTEC) 10 MG TAB PO SCH (08:26)
[2018-12-18] MEDS: GABAPENTIN 300 MG CAP PO SCH ×3 (08:26→20:43)
[2018-12-18] MEDS: VENLAFAXINE **XR** 75MG CAPSULE PO SCH (08:26)
--- NOTE | 2018-12-18 17:44 | ECGEPIP ---
Stationary ECG Study [facility] Test Date: 2018-12-17 Pat Name: OLESYA MACIAS Department: Room: [place] [address] Gender: F Chief Science Officer: MEETA : 1995 Requested By: Leida Sylvester Order Number: [id number] Reading MD: Deandre Contreras Measurements Intervals [place] Rate: 81 P: 66 TN: 164 QRS: 54 QRSD: 94 T: 40 QT: 356 QTc: 415 Interpretive Statements SINUS RHYTHM POSSIBLE LEFT ATRIAL ENLARGEMENT Nonspecific ST-T wave abnormalities Electronically Signed On 12-18-2018 17:44:18 EST by Deandre Contreras
[2018-12-18 18:38] VITALS: BP 100/62
[2018-12-18] MEDS: QUEtiapine FUMARATE 50 MG TAB PO PRN (20:43)
[2018-12-19 06:14] VITALS: BP 93/52
[2018-12-19] MEDS: CETIRIZINE (ZyrTEC) 10 MG TAB PO SCH (08:23)
[2018-12-19] MEDS: VENLAFAXINE **XR** 75MG CAPSULE PO SCH (08:23)
[2018-12-19] MEDS: GABAPENTIN 300 MG CAP PO SCH ×3 (08:23→20:30)
[2018-12-19] MEDS: NICOTINE POLACRILEX 2 MG GUM PO PRN ×4 (08:25→17:59)
[2018-12-19] MEDS: ACETAMINOPHEN TAB 650MG DOSE (2X325MG) PO PRN (15:06)
[2018-12-19 18:00] VITALS: BP 120/84
[2018-12-19] MEDS: QUEtiapine FUMARATE 50 MG TAB PO PRN (20:30)
[2018-12-20 06:22] VITALS: BP 98/62
[2018-12-20] MEDS: CETIRIZINE (ZyrTEC) 10 MG TAB PO SCH (08:24)
[2018-12-20] MEDS: NICOTINE POLACRILEX 2 MG GUM PO PRN ×4 (08:26→17:01)
[2018-12-20] MEDS: ACETAMINOPHEN TAB 650MG DOSE (2X325MG) PO PRN (08:26)
[2018-12-20] MEDS: GABAPENTIN 300 MG CAP PO SCH ×3 (08:26→20:22)
[2018-12-20] MEDS: VENLAFAXINE **XR** 75MG CAPSULE PO SCH (08:26)
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
--- NOTE | 2018-12-20 15:50 | MHIPN ---
DATE: 12/18/2018 The patient today states that she did not sleep as well last night. She was just started on Seroquel 75 mg and melatonin 25 mg to help her sleep at night. She says her mood is about a 4 out of 10, where the closest to 10 is the most depressed. MENTAL STATUS EXAMINATION: She is alert and oriented times three. Eye contact is fair. Psychomotor activity is normal. There is no formal thought disorder noted. Mood is depressed. Affect is full range and appropriate. She is not psychotic, suicidal or homicidal. Concentration is fair. Memory intact. Insight and judgment fair. DIAGNOSES: 1. Mood disorder, unspecified. 2. Rule out bipolar disorder type 2. 3. Rule out adjustment disorder. 4. Methamphetamine and opioid use disorder. TREATMENT PLAN: We will continue to monitor the patient for continued elevation and stabilization of her mood. We will increase the Seroquel to 50 mg to see if that helps her sleep better. We will continue to monitor for continued resolution of suicidal ideation.
--- NOTE | 2018-12-20 16:02 | MHIPN ---
DATE OF SERVICE: 12/19/2018 The patient today states that she slept better but she still woke up. She says she is okay and her depression is mild at this point. She denies suicidal ideations. MENTAL STATUS EXAMINATION: She is alert and oriented times three. Eye contact is fair. She is verbally spontaneous. There is no formal thought disorder noted. Mood is "better." Affect is constricted but appropriate to her mood. She is not psychotic. She denies suicidal or homicidal ideations. Concentration is fair. Memory intact. Insight and judgment is fair. DIAGNOSES: Mood disorder, unspecified. Rule out bipolar disorder type 2. Rule out adjustment disorder. Methamphetamine use disorder. Opioid use disorder. TREATMENT PLAN: We will to further monitor the patient for continued elevation and stabilization of her mood. We will continue to monitor the patient for continued resolution of suicidal ideations and her medications as indicated. She wants to try the current dose of Seroquel 50 mg again tonoscar.
[2018-12-20 18:00] VITALS: BP 128/87
[2018-12-20] MEDS: QUEtiapine FUMARATE 50 MG TAB PO PRN (20:22)
[2018-12-21 06:48] VITALS: BP 92/55
[2018-12-21] MEDS: CETIRIZINE (ZyrTEC) 10 MG TAB PO SCH (08:28)
[2018-12-21] MEDS: GABAPENTIN 300 MG CAP PO SCH (08:29)
[2018-12-21] MEDS: VENLAFAXINE **XR** 75MG CAPSULE PO SCH (08:29)
[2018-12-21] MEDS: NICOTINE POLACRILEX 2 MG GUM PO PRN (08:30)
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
[2018-12-21] MEDS ORDERED: EFFE150C2 PO (09:18)
[2018-12-21] MEDS ORDERED: ARIP5TA PO (09:18)
[2018-12-21] MEDS ORDERED: QUET5TAB PO (09:18)
== END 2018-12-21 10:05 | disposition home or self-care (01) | DRG 753 ==
LOC: M ED 14:54 → M ED INP 12-16 12:55 → M PSY 12-16 13:40
PROVIDERS: ADMIT Psychiatry & Neurology Psychiatry; ATTEND Psychiatry & Neurology Psychiatry
DX: F39 Unspecified mood [affective] disorder (principal); F11.10 Opioid abuse, uncomplicated; F43.23 Adjustment disorder with mixed anxiety and depressed mood; F63.2 Kleptomania; K21.9 Gastro-esophageal reflux disease without esophagitis; F15.10 Other stimulant abuse, uncomplicated; J30.9 Allergic rhinitis, unspecified; Z87.891 Personal history of nicotine dependence; Z79.899 Other long term (current) drug therapy

== ENCOUNTER 2021-11-07 17:03 | Emergency (ER) | payer OTHER ==
[~2021-11-07 17:03] MED LIST changes: +ARIP1TAB6 PO; +EFFE150C2 PO; +GABA600T4 PO; +LAMO100T3 PO; +NICO-267 PO; +OMEP1CAP73 PO; -OMEP20CA3 PO; -PREV15CA18 PO; +PREV15CA24 PO; +QUET50TA4 PO; +TRAZ-257 PO; +TRAZ1TAB10 PO; -TRAZO50TA PO; +VENL150C43 PO; +VENL75CA2 PO; +ZYRT10CA5 PO
[2021-11-07] MEDS ORDERED: CLON0.5T2 (17:12)
[2021-11-07] MEDS ORDERED: PROZ20CA11 PO ×2 (17:12→22:50)
[2021-11-07] MEDS ORDERED: ZYPR20TA PO (17:12)
[2021-11-07 19:37] LABS: HEMATOCRIT 40.1 % (36.0-47.0); MEAN CORPUSCULAR HEMOGLOBIN 27.3 pg (27.0-33.0); MEAN CORPUSCULAR HGB CONC 32.4 g/dl (32.0-36.5); MEAN CORPUSCULAR VOLUME 84.1 fl (80.0-96.0); PLATELET COUNT, AUTOMATED 309 10^3/uL (150-450); RED BLOOD COUNT 4.77 10^6/uL (4.00-5.40); WHITE BLOOD COUNT 6.5 10^3/uL (4.0-10.0)
[2021-11-07 19:57] LABS: AMPHETAMINES LEVEL URINE POSITIVE (NEGATIVE); BARBITURATES URINE NEGATIVE (NEGATIVE); BENZODIAZEPINES URINE NEGATIVE (NEGATIVE); CANNABINOIDS URINE POSITIVE (NEGATIVE); COCAINE METABOLITE URINE NEGATIVE (NEGATIVE); METHADONE URINE POSITIVE (NEGATIVE); OPIATES URINE POSITIVE (NEGATIVE); PHENCYCLIDINE URINE NEGATIVE (NEGATIVE)
[2021-11-07 20:10] LABS: ACETAMINOPHEN LEVEL < 2.0 UG/ML (10.0-30.0); ALBUMIN 3.5 GM/DL (3.2-5.2); ALT/SGPT 103 U/L (12-78); BILIRUBIN,DIRECT < 0.1 MG/DL (0.0-0.2); BILIRUBIN,TOTAL 0.3 MG/DL (0.2-1.0); BLOOD UREA NITROGEN 16 MG/DL (7-18); CARBON DIOXIDE LEVEL 24 MEQ/L (21-32); CHLORIDE LEVEL 106 MEQ/L (98-107); CREATININE FOR GFR 0.69 MG/DL (0.55-1.30); ETHYL ALCOHOL (ETHANOL) < 0.003 % (0.000-0.010); GLOMERULAR FILTRATION RATE > 60.0 (>60); GLUCOSE, FASTING 86 MG/DL (70-100); POTASSIUM SERUM 4.4 MEQ/L (3.5-5.1); SALICYLATE LEVEL < 1.7 MG/DL (5.0-30.0); SODIUM LEVEL 140 MEQ/L (136-145); TOTAL PROTEIN 7.6 GM/DL (6.4-8.2)
[2021-11-07 20:27] LABS: URINE PREG TEST NEGATIVE (NEGATIVE)
[2021-11-07] MEDS ORDERED: GABA-283 PO (22:50)
[2021-11-07] MEDS ORDERED: ZYPR10TA PO (22:50)
[2021-11-07] MEDS ORDERED: HOME MED LIST COMPLETE! XX SCH (22:50)
[2021-11-07] MEDS ORDERED: CLON0.5T2 PO (22:50)
[2021-11-07 23:58] VITALS: BP 110/68
== END 2021-11-08 00:02 ==
LOC: M ED 17:03
DX: F32.A Depression, unspecified (principal); R45.851 Suicidal ideations; F41.9 Anxiety disorder, unspecified; Z91.51 Personal history of suicidal behavior; B19.10 Unspecified viral hepatitis B without hepatic coma; F17.210 Nicotine dependence, cigarettes, uncomplicated; Z81.8 Family history of other mental and behavioral disorders

== ENCOUNTER → 2023-01-30 | Outpatient (CLI) | payer OTHER ==
[~2023-01-30] MED LIST changes: +CLON0.5T2; +CLON0.5T2 PO; +GABA-283 PO; +PROZ20CA11 PO; +ZYPR10TA PO; +ZYPR20TA PO
[2023-01-30 12:28] LABS: HEMATOCRIT 35.7 % (36.0-47.0); MEAN CORPUSCULAR HEMOGLOBIN 29.2 pg (27.0-33.0); MEAN CORPUSCULAR HGB CONC 33.6 g/dl (32.0-36.5); MEAN CORPUSCULAR VOLUME 86.9 fl (80.0-96.0); PLATELET COUNT, AUTOMATED 290 10^3/uL (150-450); RED BLOOD COUNT 4.11 10^6/uL (4.00-5.40); WHITE BLOOD COUNT 6.1 10^3/uL (4.0-10.0)
[2023-01-30 12:54] LABS: ALBUMIN 3.2 G/DL (3.2-5.2); ALKALINE PHOSPHATASE 60 U/L (46-116); ALT/SGPT 12 U/L (7.0-40); AST/SGOT 13 U/L (<34); BILIRUBIN,TOTAL 0.3 MG/DL (0.3-1.2); BLOOD UREA NITROGEN 11 MG/DL (9-23); CALCIUM LEVEL 8.9 MG/DL (8.5-10.1); CARBON DIOXIDE LEVEL 27 MMOL/L (20-31); CHLORIDE LEVEL 105 MMOL/L (98-107); CREATININE FOR GFR 0.53 MG/DL (0.55-1.30); GLOMERULAR FILTRATION RATE > 60.0 (>60); GLUCOSE, FASTING 67 MG/DL (60-100); POTASSIUM SERUM 4.2 MMOL/L (3.5-5.1); SODIUM LEVEL 137 MMOL/L (136-145); TOTAL PROTEIN 6.4 G/DL (5.7-8.2)
[2023-01-30 13:01] LABS: HCG, SERUM QUALITATIVE POSITIVE (NEGATIVE)
[2023-01-30 13:14] LABS: HEPATITIS B SURFACE ANTIGEN NEGATIVE (NEGATIVE)
[2023-01-30 13:27] LABS: HIV 1&2 SCREEN CENTAUR NEGATIVE (NEGATIVE)
[2023-01-30 13:57] LABS: GC DNA AMPLIFICATION NEGATIVE (NEGATIVE)
[2023-01-30 15:13] LABS: HEPATITIS C VIRUS ABY INDEX > 11.0 INDEX (<0.8)
== END ==
LOC: M LAB 11:23
PROVIDERS: ATTEND Family Medicine
DX: F11.20 Opioid dependence, uncomplicated (principal)